=== PATIENT | male | born 1940 | race Caucasian/White ===

== ENCOUNTER 2016-11-05 13:27 | Outpatient (CLI) | payer MEDICARE, BC | END 2016-11-05 23:59 | disposition home or self-care (01) | LOC: WOU 13:27 | PROVIDERS: ATTEND Podiatrist Foot & Ankle Surgery | DX: L84 Corns and callosities (principal); B35.1 Tinea unguium; G62.9 Polyneuropathy, unspecified; B35.3 Tinea pedis | CPT/HCPCS: A6402; G0463 ==

== ENCOUNTER 2016-11-22 13:28 | Emergency (ER) | payer MEDICARE, BC ==
[~2016-11-22] VITALS: Ht 182.9 cm; Wt 99.3 kg
--- NOTE | 2016-11-22 13:28 | NUR ---
PT AMBULATORY TO ER BED 16 PRESENTS W/ R HEEL AND R BIG TOE BLISTER FROM WEARING A RIDING BOOT. STATES WAS RIDING FOR 7 DAYS. DENIES PAIN. WAS SENT BY DR BERMUDEZ FOR BRENDA. NAD NOTED. AWAITING MD GUTIERREZ.
--- NOTE | 2016-11-22 14:06 | NUR ---
PAGED DR MARTINS.
--- NOTE | 2016-11-22 14:33 | NUR ---
DR MARTINS AT BEDSIDE FOR R FOOT I&D AND DEBRIDEMENT. INFORMED CONSENT SIGNED.
[2016-11-22] MEDS ORDERED: TDAP [DIPH/PERTUSSIS/TET] 0.5 ML VIAL IM ONE ×2 (14:47→15:00)
--- NOTE | 2016-11-22 15:02 | NUR ---
WOUND CARE PROVIDED. PT D/C HOME IN STABLE CONDITION.
[2016-11-22 15:04] VITALS: BP 150/77
== END 2016-11-22 15:06 | disposition home or self-care (01) ==
LOC: ER 13:32
DX: S91.301A Unspecified open wound, right foot, initial encounter (principal); Z23 Encounter for immunization; Z88.1 Allergy status to other antibiotic agents; X58.XXXA Exposure to other specified factors, initial encounter; Y92.89 Other specified places as the place of occurrence of the external cause; Y93.89 Activity, other specified; Y99.8 Other external cause status
CPT/HCPCS: 10060; 90471; 90715; 99283; A4606; A6402; A6407; Z7610

== ENCOUNTER 2016-12-12 09:50 | Outpatient (CLI) | payer MEDICARE, BC | END 2016-12-12 23:59 | disposition home or self-care (01) | LOC: WOU 09:50 | PROVIDERS: ATTEND Podiatrist Foot & Ankle Surgery | DX: L84 Corns and callosities (principal); Q66.7 Congenital pes cavus; G62.9 Polyneuropathy, unspecified; M20.12 Hallux valgus (acquired), left foot; L60.3 Nail dystrophy; B35.1 Tinea unguium; M20.40 Other hammer toe(s) (acquired), unspecified foot | CPT/HCPCS: G0463 ==

== ENCOUNTER 2017-01-09 11:10 | Outpatient (CLI) | payer MEDICARE, BC | END 2017-01-09 23:59 | disposition home or self-care (01) | LOC: WOU 11:10 | PROVIDERS: ATTEND Podiatrist Foot & Ankle Surgery | DX: S90.421A Blister (nonthermal), right great toe, initial encounter (principal); L03.031 Cellulitis of right toe; X58.XXXA Exposure to other specified factors, initial encounter; Y92.89 Other specified places as the place of occurrence of the external cause; L84 Corns and callosities; R60.0 Localized edema; G62.9 Polyneuropathy, unspecified | CPT/HCPCS: 11042; 87070; A6402 ==

== ENCOUNTER 2017-01-16 09:35 | Outpatient (CLI) | payer MEDICARE, BC | END 2017-01-16 23:59 | disposition home or self-care (01) | LOC: WOU 09:35 | PROVIDERS: ATTEND Podiatrist Foot & Ankle Surgery | DX: L97.511 Non-pressure chronic ulcer of other part of right foot limited to breakdown of skin (principal); S90.421S Blister (nonthermal), right great toe, sequela; X58.XXXS Exposure to other specified factors, sequela; G62.9 Polyneuropathy, unspecified; R60.0 Localized edema; B35.1 Tinea unguium; L03.031 Cellulitis of right toe | CPT/HCPCS: 11042; A6402 ==

== ENCOUNTER 2017-01-23 11:30 | Outpatient (CLI) | payer MEDICARE, BC | END 2017-01-23 23:59 | disposition home or self-care (01) | LOC: WOU 11:30 | PROVIDERS: ATTEND Podiatrist Foot & Ankle Surgery | DX: L60.0 Ingrowing nail (principal); G60.9 Hereditary and idiopathic neuropathy, unspecified; L84 Corns and callosities; Z86.12 Personal history of poliomyelitis; Z86.61 Personal history of infections of the central nervous system | CPT/HCPCS: G0463 ==

== ENCOUNTER 2018-05-11 10:55 | Outpatient (CLI) | payer MEDICARE, BC | END 2018-05-11 23:59 | disposition home or self-care (01) | LOC: WOU 10:55 | PROVIDERS: ATTEND Podiatrist Foot & Ankle Surgery | DX: G62.9 Polyneuropathy, unspecified (principal); L97.512 Non-pressure chronic ulcer of other part of right foot with fat layer exposed; L97.518 Non-pressure chronic ulcer of other part of right foot with other specified severity; L84 Corns and callosities; B35.1 Tinea unguium; L60.8 Other nail disorders; E78.5 Hyperlipidemia, unspecified; Z86.12 Personal history of poliomyelitis | CPT/HCPCS: A6402; G0463 ==

== ENCOUNTER 2018-08-11 12:12 | Outpatient (CLI) | payer MEDICARE, BC | END 2018-08-11 23:59 | disposition home or self-care (01) | LOC: WOU 12:12 | PROVIDERS: ATTEND Podiatrist Foot & Ankle Surgery | DX: L89.893 Pressure ulcer of other site, stage 3 (principal); B35.1 Tinea unguium; L84 Corns and callosities; M20.40 Other hammer toe(s) (acquired), unspecified foot; Z86.12 Personal history of poliomyelitis; Z86.61 Personal history of infections of the central nervous system; G60.9 Hereditary and idiopathic neuropathy, unspecified | CPT/HCPCS: 11042; A6402 ==

== ENCOUNTER 2018-12-14 09:50 | Outpatient (CLI) | payer MEDICARE, BC | END 2018-12-14 23:59 | disposition home or self-care (01) | LOC: WOU 09:50 | PROVIDERS: ATTEND Podiatrist Foot & Ankle Surgery | DX: L60.0 Ingrowing nail (principal); G60.9 Hereditary and idiopathic neuropathy, unspecified; L84 Corns and callosities; B35.1 Tinea unguium; Z79.02 Long term (current) use of antithrombotics/antiplatelets; Z79.82 Long term (current) use of aspirin | CPT/HCPCS: 11730 ==

== ENCOUNTER 2020-08-24 11:40 | Outpatient (CLI) | payer MEDICARE, BC ==
[2020-08-24] MEDS ORDERED: BACI/NEOM/POLY B OINT PKT 1 UDPKT PACKET ONE (12:09)
== END 2020-08-24 23:59 | disposition home or self-care (01) ==
LOC: WOU 11:40
PROVIDERS: ATTEND Podiatrist Foot & Ankle Surgery
DX: G60.9 Hereditary and idiopathic neuropathy, unspecified (principal); L97.522 Non-pressure chronic ulcer of other part of left foot with fat layer exposed; L97.512 Non-pressure chronic ulcer of other part of right foot with fat layer exposed; L84 Corns and callosities; B35.1 Tinea unguium; Z79.02 Long term (current) use of antithrombotics/antiplatelets; Z79.82 Long term (current) use of aspirin
CPT/HCPCS: 11042

== ENCOUNTER 2020-09-07 10:20 | Outpatient (CLI) | payer MEDICARE, BC | END 2020-09-07 23:59 | disposition home or self-care (01) | LOC: WOU 10:20 | PROVIDERS: ATTEND Podiatrist Foot & Ankle Surgery | DX: L84 Corns and callosities (principal); B35.1 Tinea unguium; G60.9 Hereditary and idiopathic neuropathy, unspecified; Z86.61 Personal history of infections of the central nervous system; Z86.12 Personal history of poliomyelitis; Z79.02 Long term (current) use of antithrombotics/antiplatelets; Z79.82 Long term (current) use of aspirin | CPT/HCPCS: G0463 ==

== ENCOUNTER 2024-12-16 09:59 | Outpatient (CLI) | payer MEDICARE, BC ==
[2024-12-16] MEDS ORDERED: UREA 10% -AHA 4% CREAM 57 GM TUBE ONE (10:15)
== END 2024-12-16 23:59 | disposition home or self-care (01) ==
LOC: WOU 09:59
PROVIDERS: ATTEND Podiatrist Foot & Ankle Surgery
DX: G90.09 Other idiopathic peripheral autonomic neuropathy (principal); B35.1 Tinea unguium; M79.675 Pain in left toe(s); L84 Corns and callosities; M20.41 Other hammer toe(s) (acquired), right foot; M79.674 Pain in right toe(s); Z79.82 Long term (current) use of aspirin; Z79.02 Long term (current) use of antithrombotics/antiplatelets
CPT/HCPCS: 11056; G0463

== ENCOUNTER 2025-02-17 10:31 | Outpatient (CLI) | payer MEDICARE, BC ==
[2025-02-17] MEDS ORDERED: MUPIROCIN 2% CREAM 15 GM TUBE TP ONE (10:49)
== END 2025-02-17 23:59 | disposition home or self-care (01) ==
LOC: WOU 10:31
PROVIDERS: ATTEND Podiatrist Foot & Ankle Surgery
DX: G90.09 Other idiopathic peripheral autonomic neuropathy (principal); L97.512 Non-pressure chronic ulcer of other part of right foot with fat layer exposed; S91.114D Laceration without foreign body of right lesser toe(s) without damage to nail, subsequent encounter; X58.XXXD Exposure to other specified factors, subsequent encounter; L84 Corns and callosities; B35.1 Tinea unguium; M20.41 Other hammer toe(s) (acquired), right foot; Z79.02 Long term (current) use of antithrombotics/antiplatelets; Z79.82 Long term (current) use of aspirin
CPT/HCPCS: 11042; A4649